=== PATIENT | female | born 1990 | race Caucasian/White ===

== ENCOUNTER 2018-03-07 23:48 | Day surgery (SDC) | payer MEDICAID, OTHER ==
[2018-03-08 02:22] VITALS: BMI 49.4
[2018-03-08 03:11] LABS: Bilirubin Negative (Negative); Blood, Urine Negative (Negative); Clarity CLEAR (Clear); Glucose, Urine (Dipstick) Negative (Negative); Leukocyte Negative (Negative); Nitrite Negative (Negative); Protein, Urine (Dipstick) Negative (Neg-Trace); Specific Gravity, Urine 1.011 (1.002-1.036); Urobilinogen 0.2 mg/dL (0.2-1.0)
[2018-03-08] MEDS ORDERED: Morphine 4 MG/ML VIAL SLOW IVP SCH (03:15)
[2018-03-08] MEDS: diphenhydrAMINE 50 MG/ML VIAL IVP PRN ×2 (03:37→04:58)
[2018-03-08] MEDS: Metoclopramide HCl 10 MG/2 ML VIAL IVP PRN ×4 (03:42→05:36)
[2018-03-08 05:09] VITALS: BP 127/58; TEMP 98.1
--- NOTE | 2018-03-08 06:58 | PRG ---
DATE OF SERVICE: 03/08/2018 CHIEF COMPLAINT: Headache. PRIMARY OB: None. HISTORY OF PRESENT ILLNESS: The patient is a 27-year-old G1, P0 female with an intrauterine pregnanc y at 22 weeks who is presenting with a 3 day history of migraine headache. The patient reports that she has headaches on occasion and that she feels mainly behind her left eye. This has not gone away and the patient has presented with concerns that she may be developing preeclampsia. The patient rep orts light sensitivity. She denies vomiting, though has been having nausea throughout the . She denies uterine contractions, vaginal bleeding, leakage of fluid. She denies fever, chest pain, shortness of breath, diarrhea or constipation, any new rashes and any urinary symptoms. PAST MEDICAL HISTORY: Migraines, left lazy eye, vocal cord dysfunction, history of kidney stones, an xiety, bipolar disorder. PAST SURGICAL HISTORY: Noncontributory. SOCIAL HISTORY: Denies drug, alcohol or tobacco use. ALLERGIES: TRAMADOL. MEDICATIONS: vitamins. OB LABS: Unavailable. REVIEW OF SYSTEMS: Per HPI. PHYSICAL EXAMINATION: VITAL SIGNS: Initial blood pressure 142/65 and 148/91. Within the first 30 minutes of arrival; landon steven, since arrival, over the following 4 hours, the patient has had normal blood pressures in the 1-t eens, to 120s over 60s with a heart rate in the 70s, respiratory 18, temperature 98.0. GENERAL: The patient appears to be in no acute distress. She is alert and oriented, cooperative and pleasant to interact with. HEENT: Normocephalic, atraumatic. LUNGS: Clear to auscultation bilaterally. HEART: Regular rate and rhythm. ABDOMEN: Soft, nontender and gravid. EXTREMITIES: Nontender. GENITOURINARY: Has been deferred. heart tracing by Doppler, the patient's heart tones are dopplered in the 140s. Tocometer had no contractions. Urinalysis was negative for protein, nitrites or leukocyte esterase or bacteria. ASSESSMENT AND PLAN: The patient is a 27-year-old G1, P0 female with an intrauterine at 22 weeks who has not established care here in the community, who presents with a 3-day history of migraine. The patient has no evidence of preeclampsia. No elevated blood pressures, no proteinu shavon. She has been treated with a series of Reglan and Benadryl IV for her migraine which has since r esolved. The patient is being discharged to home. She has an appointment made to [facility] Dr. Caceres which we have encouraged her to keep.
== END 2018-03-08 06:45 | disposition home or self-care (01) ==
LOC: ERS 23:48 → L&D/OP 23:48
PROVIDERS: ATTEND Obstetrics & Gynecology
DX: O99.352 Diseases of the nervous system complicating pregnancy, second trimester (principal); G43.909 Migraine, unspecified, not intractable, without status migrainosus; O99.342 Other mental disorders complicating pregnancy, second trimester; F41.9 Anxiety disorder, unspecified; F32.9 Major depressive disorder, single episode, unspecified; Z79.899 Other long term (current) drug therapy; Z88.5 Allergy status to narcotic agent; Z3A.22 22 weeks gestation of pregnancy
CPT/HCPCS: 81003; J1200; J2270; J2765

== ENCOUNTER 2018-03-13 09:09 | Emergency (ER) | payer MEDICAID, OTHER | END 2018-03-13 09:57 | disposition home or self-care (01) | LOC: ERS 09:09 | DX: O99.512 Diseases of the respiratory system complicating pregnancy, second trimester (principal); O99.342 Other mental disorders complicating pregnancy, second trimester; F31.9 Bipolar disorder, unspecified; Z3A.23 23 weeks gestation of pregnancy; F41.9 Anxiety disorder, unspecified; F43.10 Post-traumatic stress disorder, unspecified | CPT/HCPCS: 99283 ==

== ENCOUNTER 2018-06-18 23:11 | Day surgery (SDC) | payer OTHER ==
[2018-06-18 23:40] VITALS: BP 134/74; TEMP 98.2; BMI 51.7
--- NOTE | 2018-06-18 23:50 | PDOC.LDHP ---
Labor and Delivery H&P Chief complaint: loss of fluid HPI: Patient of Dr Caceres Patient is a 28 yo G1Po at 36 weeks 5 days with possible LOF. No VB, good FM, unsure if vag dsch or LOF. No fevers Review of Systems: Complete ROS performed and as per HPI Current gestational age (weeks): 36 (5 days) Due date: 07/11/18 Dating criteria: last menstrual period Grav: 1 Para: 0 Current complications: other (Obesity (morbid)) Abnormal US findings: No Past Medical History: HX Bipolar Current medications: pre- vitamins Allergies/Adverse Reactions: Allergies Allergy/AdvReac Type Severity Reaction Status Date / Time tramadol Allergy Verified 03/08/18 02:15 Social history: none - Physical Exam Vital signs reviewed and normal: yes (134/74 98.2 107) General: NAD Heart: RRR Lungs: CTAB Abdomen: gravid (Obese) FHT: category 1 [place] contractions every: none - Assessment 36 weeks, leakage possible; obesity; Bipolar - Plan Plan: observation in L&D (Amnisure sent. We will perform SSE)
--- NOTE | 2018-06-19 00:01 | PDOC.EVN ---
Event Note - Event Note Event Note: Sterile spec exam discussed with patient. Performed by me with RN in room. No evidence ROM. Valsalva and cough negative. I suspect BV due to white cream colored dsch. I have collected a VP3
[2018-06-19 00:02] LABS: Amnisure Test No Membranes Rupture (No Rupture)
[2018-06-19 00:03] LABS: Amnisure Internal Control QC ACCEPTABLE (ACCEPTABLE)
--- NOTE | 2018-06-19 00:03 | PDOC.EVN ---
Event Note - Event Note Event Note: I just called lab: VP3 will not be run until tomorrow. I will give an RX for Flagyl po BID and have her follow up with Nicki for results. Emperic RX for BV
--- NOTE | 2018-06-19 00:04 | PDOC.EVN ---
Event Note - Event Note Event Note: is negative
== END 2018-06-19 00:10 | disposition home or self-care (01) ==
LOC: L&D/OP 23:11
PROVIDERS: ATTEND Student in an Organized Health Care Education/Training Program
DX: O99.89 Other specified diseases and conditions complicating pregnancy, childbirth and the puerperium (principal); N89.8 Other specified noninflammatory disorders of vagina; O99.343 Other mental disorders complicating pregnancy, third trimester; F31.9 Bipolar disorder, unspecified; O99.213 Obesity complicating pregnancy, third trimester; E66.01 Morbid (severe) obesity due to excess calories; Z68.43 Body mass index [BMI] 50.0-59.9, adult; Z3A.36 36 weeks gestation of pregnancy; Z88.5 Allergy status to narcotic agent
CPT/HCPCS: 84112; 87480; 87510; 87660; 99284

== ENCOUNTER 2018-06-24 12:31 | Day surgery (SDC) | payer OTHER ==
[2018-06-24 13:08] VITALS: BMI 51.7
--- NOTE | 2018-06-24 14:07 | PDOC.FPROB ---
FMR OB H&P: HPI - History of Present Illness Chief Complaint: decreased movement History of Present Illness: 28 yo @ 37.4 presents for decreased movement and elevated BP. Pmh of anxiety, depression, PTSD, and bipolar disorder, not currently on medications. Pt reports she had a bad dream that she had a still and awoke to decreased movement. Reports that her baby is normally active in the am; however today she only noticed 5 kicks over a 2 hour period. She spoke with front end application developer ob provider who encouraged her to check her BP and go to l&d if elevated. She checked her BP at a [facility] and it was found to be 160 systolic. Additionally, pt reports recent chiropractic adjustment of the hips and had resultant swelling of the mons pubis since this am. Denies erythema or warmth in the area. Denies associated fever, chills, NVDC, LOF, contractions, vaginal bleeding. Currently she reports good movement. Primary Care Physician: Nicki FMR OB H&P: Current - Care : 1 Para: 0 Dating Criteria: LMP c/w 16.1wk sono - OB Labs Blood type: A RH: positive Antibody Screen: negative HIV: negative RPR: negative HepBsAg: negative Rubella: immune Gonorrhea: unknown Chlamydia: unknown FMR OB H&P: History - Past Medical History PMH: Bipolar, anxiety, depression, PTSD - OB History OB History: None - Social History Social History: denies tobacco, alcohol and drug use FMR OB H&P: Medications - Current Home Medications: Medication Instructions Recorded Confirmed Type No Known 06/18/18 06/24/18 History Allergies/Adverse Reactions: Allergies Allergy/AdvReac Type Severity Reaction Status Date / Time tramadol Allergy Hives Verified 06/24/18 13:01 FMR OB H&P: ROS - Review of Systems General: denies: fever/chills, recent trauma ENT: denies: nasal congestion, sore throat Cardiovascular: reports: edema. denies: chest pain Respiratory: denies: cough, congestion, shortness of breath Gastrointestinal: reports: nausea (throughout ). denies: abdominal pain, cramping, vomiting Genitourinary (Female): denies: dysuria, hematuria, vaginal discharge, vaginal pain, vaginal bleeding Musculoskeletal: reports: pain, tenderness, swelling (swelling of mons pubis s/ p chiropractic treatment) Psychological: reports: depression, anxiety FMR OB H&P: Vital Signs - Maternal Vital signs: T: 97.9F BP: 127/62 RR: 18 BPM HR: 103 - Heart Tones Baseline: 140 Variability: moderate Acceleration: present Deceleration: absent Category: category 1 [place] contractions every: None FMR OB H&P: Physical Exam - Physical Exam General: NAD, other (Morbidly Obese) HEENT: normocephalic and atraumatic, PERRLA, EOMI, MMM, conjunctiva clear, grossly normal vision, grossly normal hearing Neck: FROM, trachea midline Chest: non-tender to palpation Heart: RRR, normal S1/S2, no murmurs/rubs/gallops, no edema General: CTAB, no respiratory distress, good air movement, no rales/rhonchi, no wheezing, no retractions Abdomen: soft, gravid, non-tender, bowel sound present, no masses Musculoskeletal: pulses present Skin: no rash - Pelvic Exam Vulva: normal hair distribution Deviation from normal: Mons pubis appears normal, no erythema, edema or warmth. Pt morbidly obese. FMR OB H&P: A/P - Problem List (1) Current Visit: Yes Status: Acute Assessment and Plan: -known h/o BV and has not started medications yet, encouraged to take meds if/ when pt dc'd to home -reports good movement and heart tracings show mod variability with baseline 140s; stable for DC to home - decreased movement has resolved: encouraged kick counts - concern for elevated BP: BP taken at outside pharmacy showed elevated BP, but given pts body habitus likely related to improperly sized cuff. BP on L&D WNL and pt currently asymptomatic, repeat BPs normotensive. Pt stable for DC to home with OP f/u with primary OB provider Disposition: stable, DC to home. Reactive EFM/FHTs and resolution of decreased movement Discussion: Date/Time: 06/24/18 1405 This H&P was discussed with Dr. Alvarez who agree with the above documentation and plan.
== END 2018-06-24 15:20 | disposition home or self-care (01) ==
LOC: L&D/OP 12:31
PROVIDERS: ATTEND Student in an Organized Health Care Education/Training Program
DX: O36.8130 Decreased fetal movements, third trimester, not applicable or unspecified (principal); O16.3 Unspecified maternal hypertension, third trimester; O99.343 Other mental disorders complicating pregnancy, third trimester; F41.9 Anxiety disorder, unspecified; F31.9 Bipolar disorder, unspecified; F43.10 Post-traumatic stress disorder, unspecified; Z3A.37 37 weeks gestation of pregnancy; Z88.5 Allergy status to narcotic agent
CPT/HCPCS: 99282

== ENCOUNTER 2018-07-05 15:48 | Inpatient (IN) | payer OTHER ==
[2018-07-05 21:26] VITALS: BMI 47.4
[2018-07-05] MEDS ORDERED: Misoprostol 200 MCG TAB PR PRN (21:32)
[2018-07-05] MEDS ORDERED: Ibuprofen 800 MG TAB PO PRN (21:32)
[2018-07-05] MEDS ORDERED: Acetaminophen 500 MG TAB PO PRN (21:32)
[2018-07-05] MEDS ORDERED: Carboprost 250 MCG/ML AMP IM PRN (21:32)
[2018-07-05] MEDS ORDERED: Lidocaine 1% (PF) 30 ML VIAL SC PRN (21:32)
[2018-07-05] MEDS ORDERED: Promethazine HCl 25 MG/ML VIAL IM PRN (21:32)
[2018-07-05] MEDS ORDERED: Diphenoxylate HCl/Atropine Tablet PO PRN (21:32)
[2018-07-05] MEDS ORDERED: Methylergonovine 0.2 MG/ML VIAL IM PRN (21:32)
[2018-07-05] MEDS ORDERED: HYDROcodone/Acetaminophen 5/325 mg Tablet PO PRN (21:32)
[2018-07-05] MEDS ORDERED: Zolpidem Tartrate 5 MG TAB PO PRN (21:32)
[2018-07-05] MEDS: Misoprostol 100 MCG TAB VAG SCH (22:20)
[2018-07-05] MEDS: Lactated Ringer's 1,000 ML IV SCH (22:21)
[2018-07-05 22:38] LABS: Hemoglobin 11.9 g/dL (12.0-16.0); Mean Corpuscular HGB CONC 31.5 g/dL (32.0-36.0); Mean Corpuscular Hemoglobin 24.8 pg (27.0-31.0); Mean Corpuscular Volume 78.7 fL (78.0-98.0); Mean Platelet Volume 9.3 fL (7.4-10.4); Platelet Count 189 thou/uL (130-400); RBC Distribution Width 15.1 % (11.5-14.5); Red Blood Cell (RBC) Count 4.81 mill/uL (4.20-5.40); White Blood Cell (WBC) Count 8.7 thou/uL (4.8-10.8)
[2018-07-05 23:04] LABS: ALT (SGPT) 9 U/L (8-55); AST (SGOT) 10 U/L (5-34); Albumin 3.2 g/dL (3.5-5.0); Alkaline Phosphatase 180 U/L (40-150); Anion Gap 14 mmol/L (10-20); BUN (Urea Nitrogen) 9 mg/dL (7.0-18.7); Bilirubin, Total 0.2 mg/dL (0.2-1.2); Calc. Creatinine Clearance 282 mL/min (70-130); Calcium 9.2 mg/dL (7.8-10.44); Carbon Dioxide 19 mmol/L (22-29); Chloride 106 mmol/L (98-107); Estimated GFR-MDRD Greater than 90; Globulin 3.3 g/dL (2.4-3.5); Glucose 121 mg/dL (70-105); Potassium 3.9 mmol/L (3.5-5.1); Protein, Total 6.5 g/dL (6.0-8.3); Sodium 135 mmol/L (136-145)
[2018-07-05 23:13] LABS: HBSAg Index 0.17 S/CO (0-0.99); Hep B Surf Ag Non-Reactive S/CO (NonReactive)
[2018-07-05 23:16] LABS: Syphilis Antibody Nonreactive (Nonreactive); Syphilis Antibody Index 0.04 S/CO (<1.00 Non-Reactive)
[2018-07-05 23:32] LABS: Bilirubin Negative (Negative); Blood, Urine Negative (Negative); Clarity CLOUDY (Clear); Glucose, Urine (Dipstick) Negative (Negative); Leukocyte Negative (Negative); Nitrite Negative (Negative); Protein, Urine (Dipstick) Trace mg/dL (Neg-Trace); Specific Gravity, Urine 1.025 (1.002-1.036); Urobilinogen 0.2 mg/dL (0.2-1.0)
[2018-07-05 23:35] LABS: Bacteria/HPF None Seen HPF (None Seen); Hyaline Casts/LPF 0-3 HYALINE CAST LPF (0-3 Hyaline); Pathc Cast-AUWi Flag 0.29 (0-2.49)
[2018-07-05 23:44] LABS: RBC/HPF None Seen HPF (0-3); Renal Epithelial None Seen HPF (0-3); Transitional Epithelial NONE SEEN HPF (0-3)
[2018-07-06] MEDS ORDERED: Labetalol HCl 100 MG/20 ML VIAL SLOW IVP SCH (00:15)
[2018-07-06] MEDS ORDERED: Magnesium Sulfate 20 gm/500 ml 4 GM/100 ML BAG IVPB SCH (01:30)
[2018-07-06] MEDS: Magnesium Sulfate 20 gm/500 ml 20 GM/500 ML BAG IVPB SCH ×3 (01:44→19:15)
[2018-07-06] MEDS: Misoprostol 100 MCG TAB VAG SCH ×2 (01:59→05:06)
[2018-07-06] MEDS ORDERED: Labetalol HCl 100 MG/20 ML VIAL SLOW IVP PRN (02:00)
[2018-07-06] MEDS: Butorphanol Tartrate 1 MG/ML VIAL SLOW IVP PRN ×2 (04:27→08:05)
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
[2018-07-06] MEDS: NS w/ Oxytocin 10 units 500 ML IV SCH ×2 (09:08→20:16)
[2018-07-06] MEDS ORDERED: DISCONTINUE ALL PREVIOUS NARCOTICS FS SCH (09:15)
[2018-07-06] MEDS: Lactated Ringer's 1,000 ML IV SCH ×2 (10:12→11:52)
[2018-07-06] MEDS: Bupivacaine 0.5% 20 ML, fentaNYL Citrate/PF 400 MCG in Sodium Chloride 0.9% 72 ML EPIDURAL SCH ×3 (10:13→23:45)
[2018-07-06] MEDS: Ondansetron HCl/PF 4 MG/2 ML Vial IVP PRN ×2 (10:43→21:48)
[2018-07-06] MEDS ORDERED: Acetaminophen 325 MG TAB PO PRN (11:31)
[2018-07-06] MEDS ORDERED: Promethazine HCl 25 MG/ML VIAL IM PRN (11:31)
[2018-07-06] MEDS ORDERED: Eucerin (Mineral Oil/Petrolatum,White) 30 gm Jar TOP PRN (11:31)
[2018-07-06] MEDS ORDERED: diphenhydrAMINE 50 MG/ML VIAL IVP PRN (11:31)
[2018-07-06] MEDS ORDERED: Lactated Ringer's 500 ML IV PRN (11:31)
[2018-07-06] MEDS ORDERED: Naloxone HCl 0.4 mg/ml Vial IVP PRN ×2 (11:31)
[2018-07-06] MEDS ORDERED: Ondansetron HCl/PF 4 MG/2 ML Vial IVP PRN (11:31)
[2018-07-06] MEDS ORDERED: ePHEDrine/0.9% NaCl/PF SYRINGE 50 mg/10 ml SLOW IVP PRN (11:31)
[2018-07-06] MEDS ORDERED: fentaNYL Citrate/PF 400 MCG, Bupivacaine 0.5% 20 ML in Sodium Chloride 0.9% 72 ML EPIDURAL SCH (11:45)
[2018-07-06] MEDS ORDERED: Communication Order-Pharmacy FS SCH (11:45)
[2018-07-06] MEDS ORDERED: Butorphanol Tartrate 1 MG/ML VIAL ONE (19:55)
[2018-07-06] MEDS ORDERED: Butorphanol Tartrate 1 MG/ML VIAL SLOW IVP SCH (20:00)
--- NOTE | 2018-07-06 20:27 | PDOC.LDPN ---
Labor & Delivery Progress Note - Subjective Subjective: comfortable - Objective Vital signs reviewed and normal: yes General: NAD Uterine fundus: non tender FHT: category 1 [place] contractions every: 2-3min Plan: continue plan of care
[2018-07-07] MEDS ORDERED: Methylergonovine 0.2 MG/ML VIAL ONE (00:28)
[2018-07-07] MEDS ORDERED: Carboprost 250 MCG/ML AMP ONE (00:28)
[2018-07-07] MEDS: NS / Oxytocin 40 units/1000ml 1,000 ML IV PRN ×2 (00:51→01:45)
[2018-07-07 01:22] LABS: #Monocytes 0.5 thou/uL (0.11-0.59); %Eosinophils 0.2 % (0.0-10.0); %Lymphocytes 8.3 % (21.0-51.0); %Monocytes 4.6 % (0.0-10.0); %Neutrophils 86.9 % (42.0-75.0); Hemoglobin 10.2 g/dL (12.0-16.0); Mean Corpuscular HGB CONC 32.3 g/dL (32.0-36.0); Mean Corpuscular Hemoglobin 25.3 pg (27.0-31.0); Mean Corpuscular Volume 78.4 fL (78.0-98.0); Mean Platelet Volume 8.9 fL (7.4-10.4); Platelet Count 168 thou/uL (130-400); RBC Distribution Width 14.8 % (11.5-14.5); Red Blood Cell (RBC) Count 4.02 mill/uL (4.20-5.40); White Blood Cell (WBC) Count 11.5 thou/uL (4.8-10.8)
--- NOTE | 2018-07-07 01:34 | PDOC.OPDEL ---
OB Operative/Delivery Note Delivery Dr/Surgeon: Nicki Assist: n/a Pre-Delivery Diagnosis: medically indicated induction (Severe Preeclampsia) Procedure/Post Delivery Dx: spontaneous vaginal delivery Weeks gestation: 39 Anesthesia: epidural - Findings A Sex: female - 1 min: 9 - 5 min: 9 - Additional Findings/Plan Placenta delivered: spontaneous Repaired Obstetrical Laceration: 2nd degree (repaired with 2-0 vicryl in usual fashion excellent hemostasis, no other vaginal or cervical lacs noted on exam) Estimated blood loss: 2564 qbl Compilations/Other Findings: PPH- during delivery of placenta slow trickle was noted, once placenta delivered brisk bleeding was noted, immediate bimanual massage and uterotonics called for while pitocin bolus going in. Boggy uterus noted, sweep of uterus did not reveal any retained products, just clot accumulating. Massage with aid of nurse was continued while hemabate was being given. Methergine contraindicated due to patient's severe hypertension. Anderson catheter replaced, cytotec 800mcg placed in rectum, continue massage performed and uterine tone started to improve. Thorough inspection of vagina and cervix revealed second degree perineal lac. This was repaired with 2-0 vicryl in usual fashion with excellent hemostasis. Bimanual sweep revealed firm fundus with clot in lower segment that was cleared and out massaged. The tone improved thereafter and bleeding was minimal, appropriate. Labs were drawn and T&C ordered. Clinically pt was asymptomatic and pulse was in 110s. If symptoms of anemia arise will start transfusion, if not then will draw serial H/H q 6h. Continue Mag for severe PEC x 24h after delivery. Post delivery plan: recovery in LICU
[2018-07-07] MEDS ORDERED: Carboprost 250 MCG/ML AMP IM SCH (01:45)
[2018-07-07] MEDS ORDERED: Milk Of Magnesia 30 ML UDCUP PO PRN (03:51)
[2018-07-07] MEDS ORDERED: NS / Oxytocin 40 units/1000ml 1,000 ML IV SCH (03:51)
[2018-07-07] MEDS ORDERED: Calcium Gluconate 4.6 MEQ in Sodium Chloride 0.9% 100 ML IVPB PRN (03:51)
[2018-07-07] MEDS ORDERED: Preparation H Ointment 28 GM TUBE PR PRN (03:51)
[2018-07-07] MEDS ORDERED: Ondansetron HCl/PF 4 MG/2 ML Vial IVP PRN (03:51)
[2018-07-07] MEDS ORDERED: Promethazine HCl 25 MG/ML VIAL IM PRN (03:51)
[2018-07-07] MEDS ORDERED: Bisacodyl 10 MG SUPP PR PRN (03:51)
[2018-07-07] MEDS ORDERED: Benzocaine/Menthol 20-0.5% 60 ML CAN TOP PRN (03:51)
[2018-07-07] MEDS ORDERED: Lanolin Ointment 7 GM TUBE TOP PRN (03:51)
[2018-07-07] MEDS ORDERED: diphenhydrAMINE 25 MG CAP PO PRN (03:51)
[2018-07-07] MEDS ORDERED: HYDROcodone/Acetaminophen 5/325 mg Tablet PO PRN (03:51)
[2018-07-07] MEDS: Magnesium Sulfate 20 gm/500 ml 20 GM/500 ML BAG IVPB SCH ×2 (04:56→15:25)
[2018-07-07 06:16] LABS: Hemoglobin 9.6 g/dL (12.0-16.0); Mean Corpuscular HGB CONC 32.6 g/dL (32.0-36.0); Mean Corpuscular Hemoglobin 25.9 pg (27.0-31.0); Mean Corpuscular Volume 79.4 fL (78.0-98.0); Mean Platelet Volume 9.2 fL (7.4-10.4); Platelet Count 170 thou/uL (130-400); RBC Distribution Width 15.4 % (11.5-14.5); Red Blood Cell (RBC) Count 3.71 mill/uL (4.20-5.40); White Blood Cell (WBC) Count 14.2 thou/uL (4.8-10.8)
[2018-07-07 07:58] LABS: PTT 29.4 SEC (22.9-36.1); Prothrombin Time 13.5 SEC (12.0-14.7)
--- NOTE | 2018-07-07 08:05 | PDOC.PP ---
Post Progress Note Post Day #: 0 Subjective: Feels fine, no dizziness lightheadedness shortness of breath, +fatigue but better after resting and transfusion. Pain minimal. No PIH sx. PO intake tolerated: yes Flatus: yes Ambulation: no Vital Signs (12 hours) Temp 07/07/18 03:51 98.1 F 07/06/18 21:32 97.8 F Weight Weight 303 lb - Physical Examination General: NAD Cardiovascular: RRR Respiratory: clear to auscultation bilaterally, non-labored breathing Abdominal: no distention, appropriately TTP Fundus firm & at: umb Extremities: negative homans (B) (1+ KARLA bilaterally) Neurological: no gross focal deficits Psychiatric: normal affect Result Diagrams: 07/07/18 04:59 07/05/18 22:10 Additional Labs: Post Labs Blood Type A POSITIVE 07/05/18 22:18 Hep Bs Antigen Non-Reactive S/CO (NonReactive) 07/05/18 22:10 - Assessment/Plan PPD0 s/p TSVD complicated by severe PEC and PPH VSSAF- BP, pulse improved and normal s/p transfusion. PPH hgb 11.9-->qbl 2564cc-->10.2-->1U PRBC-->9.6, no sx anemia, will cont to trend serial hgb. If vital sign changes or sx would transfuse additional PRBC. Will cont Iron and PNV on DC. Severe PIH- on Mag, no sx PIH or mag toxicity, UOP excellent, labs wnl, cont Mag x 24h then DC castro and transfer to floor. Up with assist Rh pos RImm Cont LICU care.
[2018-07-07] MEDS ORDERED: Adacel (T-DAP) 0.5 ML VIAL IM ONE (09:00)
[2018-07-07] MEDS: Ibuprofen 800 MG TAB PO SCH ×3 (10:54→22:20)
[2018-07-07] MEDS: Ferrous Sulfate 325 MG TAB PO SCH ×2 (10:54→20:10)
[2018-07-07] MEDS: Docusate Calcium (SURFAK) 240 MG CAP PO SCH ×2 (10:55→23:20)
[2018-07-07] MEDS: Prenatal Vitamin 1 TAB PO SCH (10:55)
[2018-07-07] MEDS ORDERED: Lidocaine 2% MPF 10 ML AMP (For Epidural Use) ONE (11:11)
[2018-07-07 11:32] LABS: Mean Corpuscular HGB CONC 33.1 g/dL (32.0-36.0); Mean Corpuscular Hemoglobin 26.4 pg (27.0-31.0); Mean Corpuscular Volume 79.8 fL (78.0-98.0); Mean Platelet Volume 8.9 fL (7.4-10.4); Platelet Count 160 thou/uL (130-400); RBC Distribution Width 15.1 % (11.5-14.5); Red Blood Cell (RBC) Count 3.41 mill/uL (4.20-5.40); White Blood Cell (WBC) Count 10.8 thou/uL (4.8-10.8)
[2018-07-07] MEDS: HYDROcodone/Acetaminophen 5/325 mg Tablet PO PRN ×2 (14:33→20:05)
[2018-07-07] MEDS: Lactated Ringer's 1,000 ML IV SCH (15:25)
--- NOTE | 2018-07-08 00:19 | PDOC.PP ---
Post Progress Note Post Day #: #1 Subjective: Denies RAIN or blurry vision PO intake tolerated: yes Flatus: yes Ambulation: no Weight Weight 137.438 kg - Physical Examination General: NAD Respiratory: non-labored breathing Abdominal: no distention Psychiatric: normal affect Result Diagrams: 07/07/18 11:26 07/05/18 22:10 Additional Labs: Post Labs Blood Type A POSITIVE 07/05/18 22:18 Hep Bs Antigen Non-Reactive S/CO (NonReactive) 07/05/18 22:10 - Assessment/Plan Doing well. Stable VS and good UO; PIH resolving. DC Mg later this AM and transfer to floor.
[2018-07-08] MEDS: HYDROcodone/Acetaminophen 5/325 mg Tablet PO PRN ×2 (05:34→19:49)
[2018-07-08] MEDS: Ibuprofen 800 MG TAB PO SCH ×3 (05:45→21:49)
[2018-07-08 05:48] LABS: Hemoglobin 8.5 g/dL (12.0-16.0); Mean Corpuscular HGB CONC 32.6 g/dL (32.0-36.0); Mean Corpuscular Hemoglobin 26.4 pg (27.0-31.0); Mean Corpuscular Volume 80.9 fL (78.0-98.0); Platelet Count 162 thou/uL (130-400); RBC Distribution Width 15.5 % (11.5-14.5); Red Blood Cell (RBC) Count 3.23 mill/uL (4.20-5.40); White Blood Cell (WBC) Count 7.8 thou/uL (4.8-10.8)
[2018-07-08] MEDS: Prenatal Vitamin 1 TAB PO SCH (09:14)
[2018-07-08] MEDS: Ferrous Sulfate 325 MG TAB PO SCH ×2 (09:14→17:10)
[2018-07-08] MEDS: Docusate Calcium (SURFAK) 240 MG CAP PO SCH ×2 (09:14→19:55)
[2018-07-08 21:05] VITALS: TEMP 98.1
[2018-07-08] MEDS: Misoprostol 100 MCG TAB VAG SCH ×3 (21:07→21:09)
[2018-07-09] MEDS: HYDROcodone/Acetaminophen 5/325 mg Tablet PO PRN ×2 (04:02→11:18)
[2018-07-09] MEDS: Ibuprofen 800 MG TAB PO SCH (05:46)
[2018-07-09 07:53] VITALS: BP 125/76
--- NOTE | 2018-07-09 08:13 | DIS ---
DATE OF ENCOUNTER: 07/09/2018 DATE OF ADMISSION: 07/06/2018 DATE OF DISCHARGE: 07/09/2018 ADMITTING DIAGNOSES: 1. Intrauterine at 39 weeks. 2. Preeclampsia with severe features. 3. Morbid obesity. DISCHARGE DIAGNOSES: 1. Intrauterine at 39 weeks. 2. Preeclampsia with severe features. 3. Morbid obesity. 4. hemorrhage. 5. Acute blood loss anemia. PROCEDURE: Term spontaneous vaginal delivery with hemorrhage and blood transfusion. HOSPITAL COURSE: Patient is a 28-year-old female, who was admitted to the hospital for inducti on of labor secondary to preeclampsia with severe features. She was placed on magnesium for seizure prophylaxis. Labor resulted in a spontaneous vaginal delivery with a second-degree laceration and a 2564 mL quantitative blood loss due to atony, which was remedied with medical management. Please ref er to the delivery note for complete details. The patient was resuscitated with IV fluids and 1 unit of packed red blood cells. Her post-delivery hemoglobin after transfusion 8.5, hematocrit 26.1, platelets of 162,000. Starting hemoglobin was 11.9, hematocrit 37.9. Today, she is day #2. Blood pressures have remaine d in the normal range with her most recent blood pressure being 122/58, pulse of 82, respiratory rate of 16. GENERAL: She appears to be in no acute distress. She is alert and oriented, cooperative and pleasan t to interact with. HEENT: Head is normocephalic, atraumatic. ABDOMEN: Fundus is firm at the umbilicus. EXTREMITIES: Have some pitting edema, but are symmetrical, 1+. The patient will be discharged to home with instructions to follow up with Dr. Caceres in 1 week for blood pressure check. She has also been given instructions to seek medical attention sooner if she e xperiences fever, increasing pain, or bleeding or if her blood pressures at home begin rising into th e severe range, which is above 160 on the top number and 105 on the bottom number. The patient will be discharged with ibuprofen to be taken as needed for pain.
[2018-07-09] MEDS: Prenatal Vitamin 1 TAB PO SCH (09:23)
[2018-07-09] MEDS: Ferrous Sulfate 325 MG TAB PO SCH (09:23)
[2018-07-09] MEDS: Docusate Calcium (SURFAK) 240 MG CAP PO SCH (09:23)
== END 2018-07-09 11:33 | disposition home or self-care (01) | DRG 774 ==
LOC: L&D 21:15 → 3SW 07-08 04:50
PROVIDERS: ADMIT Student in an Organized Health Care Education/Training Program; ATTEND Student in an Organized Health Care Education/Training Program
PROC: 0KQM0ZZ Repair Perineum Muscle, Open Approach (ICD-10-PCS; principal; 2018-07-07)
PROC: 10E0XZZ Delivery of Products of Conception, External Approach (ICD-10-PCS; 2018-07-07)
PROC: 4A1HXCZ Monitoring of Products of Conception, Cardiac Rate, External Approach (ICD-10-PCS; 2018-07-07)
PROC: 4A1HXFZ Monitoring of Products of Conception, Cardiac Rhythm, External Approach (ICD-10-PCS; 2018-07-07)
PROC: 30233N1 Transfusion of Nonautologous Red Blood Cells into Peripheral Vein, Percutaneous Approach (ICD-10-PCS; 2018-07-07)
DX: O14.14 Severe pre-eclampsia complicating childbirth (principal); O72.1 Other immediate postpartum hemorrhage; Z68.42 Body mass index [BMI] 45.0-49.9, adult; D62 Acute posthemorrhagic anemia; O70.1 Second degree perineal laceration during delivery; Z37.0 Single live birth; O69.81X0 Labor and delivery complicated by cord around neck, without compression, not applicable or unspecified; Z3A.39 39 weeks gestation of pregnancy; O99.214 Obesity complicating childbirth; E66.01 Morbid (severe) obesity due to excess calories; O90.81 Anemia of the puerperium; O99.344 Other mental disorders complicating childbirth; F43.10 Post-traumatic stress disorder, unspecified; F31.9 Bipolar disorder, unspecified; Z91.410 Personal history of adult physical and sexual abuse
CPT/HCPCS: 36415; 36430; 51702; 80053; 81001; 83735; 85025; 85027; 85384; 85610; 85730; 86780; 86850; 86900; 86901; 87340; J0595; J1200; J2001; J2210; J2405; J3010; J3475; J3490; J7050; P9016

== ENCOUNTER 2019-04-03 13:31 | Emergency (ER) | payer OTHER ==
[2019-04-03 14:28] LABS: Bilirubin Negative (Negative); Blood, Urine Negative (Negative); Clarity Clear (Clear); Glucose, Urine (Dipstick) Negative (Negative); Leukocyte Trace (Negative); Nitrite Negative (Negative); Protein, Urine (Dipstick) Negative (Neg-Trace); Specific Gravity, Urine 1.015 (1.005-1.030); Urobilinogen 0.2 mg/dL (0.2-1.0)
[2019-04-03 14:29] LABS: Pregnancy Test - Urine (BHCG) Negative (Negative); Pregu Control Background? CLEAR/WHITE (CLR/WHITE); Pregu Control Bar Appear? YES (CONTROL BAR); Specific Gravity 1.015 (1.002-1.036)
[2019-04-03 14:35] LABS: #Basophils 0.1 thou/uL (0.0-0.2); #Eosinphils 0.2 thou/uL (0.0-0.7); #Monocytes 0.4 thou/uL (0.11-0.59); #Neutrophils 6.1 thou/uL (1.40-6.50); %Basophils 0.6 % (0.0-1.0); %Eosinophils 1.7 % (0.0-10.0); %Lymphocytes 30.9 % (21.0-51.0); %Monocytes 4.3 % (0.0-10.0); %Neutrophils 62.5 % (42.0-75.0); Mean Corpuscular HGB CONC 31.8 g/dL (32.0-36.0); Mean Corpuscular Hemoglobin 25.3 pg (27.0-31.0); Mean Corpuscular Volume 79.6 fL (78.0-98.0); Mean Platelet Volume 8.4 fL (7.4-10.4); Platelet Count 313 thou/uL (130-400); RBC Distribution Width 14.5 % (11.5-14.5); Red Blood Cell (RBC) Count 5.15 mill/uL (4.20-5.40); White Blood Cell (WBC) Count 9.7 thou/uL (4.8-10.8)
[2019-04-03 14:35] LABS: Bacteria/HPF None Seen HPF (None Seen); Hyaline Casts/LPF NONE SEEN LPF (0-3 Hyaline); RBC/HPF None Seen HPF (0-3); Squamous Epithelial 0-3 HPF (0-3); WBC/HPF None Seen HPF (0-3)
[2019-04-03 15:05] LABS: ALT (SGPT) 24 U/L (8-55); AST (SGOT) 14 U/L (5-34); Alkaline Phosphatase 79 U/L (40-150); Anion Gap 12 mmol/L (10-20); BUN (Urea Nitrogen) 8 mg/dL (7.0-18.7); Bilirubin, Total 0.3 mg/dL (0.2-1.2); Calc. Creatinine Clearance 0 mL/min (70-130); Calcium 9.5 mg/dL (7.8-10.44); Carbon Dioxide 24 mmol/L (22-29); Chloride 105 mmol/L (98-107); Estimated GFR-MDRD 89; Globulin 3.6 g/dL (2.4-3.5); Glucose 92 mg/dL (70-105); Lipase 25 U/L (8-78); Potassium 4.1 mmol/L (3.5-5.1); Protein, Total 7.6 g/dL (6.0-8.3); Sodium 137 mmol/L (136-145)
[2019-04-03] MEDS ORDERED: Ketorolac Tromethamine 30 MG/ML VIAL ONE (15:58)
--- NOTE | 2019-04-03 16:34 | ULT ---
ULTRASOUND ABDOMEN LIMITED: (RIGHT UPPER QUADRANT) DATE: 04/03/2019 HISTORY: 29-year-old female with right upper quadrant abdominal pain. FINDINGS: Gallbladder: Normal wall thickness. No evidence of pericholecystic fluid, gallstones, or sludge. Liver: Diffusely increased echogenicity, consistent with fatty liver. Probably enlarged. Common duct caliber:2 mm. Right kidney: No hydronephrosis. Pancreas: Obscured by shadowing from bowel gas. IMPRESSION: 1) Hepatic steatosis and probable hepatomegaly. 2) no other pathology identified. 3) pancreas not visualized.
[2019-04-04 17:26] LABS: Chlamydia by PCR Not Detected (NotDetected); GC by PCR Not Detected (NotDetected)
== END 2019-04-03 16:49 | disposition home or self-care (01) ==
LOC: ERS 13:31
DX: N76.0 Acute vaginitis (principal); R10.84 Generalized abdominal pain; B96.89 Other specified bacterial agents as the cause of diseases classified elsewhere; F41.9 Anxiety disorder, unspecified; F31.9 Bipolar disorder, unspecified; F32.9 Major depressive disorder, single episode, unspecified; F43.10 Post-traumatic stress disorder, unspecified
CPT/HCPCS: 36415; 36416; 76700; 80053; 81003; 81015; 81025; 83690; 85025; 87480; 87491; 87510; 87591; 87660; 96372; J1885